=== PATIENT | female | born 1950 | race Caucasian/White ===

== ENCOUNTER → 2016-09-20 | Outpatient (CLI) | payer BC ==
[~2016-09-20] MED LIST: B-COTAB18 PO; CALC600T9 PO; KETO10TA PO; MULT-506 PO; OXYC-57 PO
== END | disposition home or self-care (01) ==
LOC: C.LABSPEC 16:59
PROVIDERS: ATTEND Ophthalmology
DX: H10.11 Acute atopic conjunctivitis, right eye (principal)

== ENCOUNTER → 2016-10-25 | Outpatient (CLI) | payer BC ==
--- NOTE | 2016-10-25 12:50 | MAMMOGRAPHY REPORT ---
BILATERAL DIGITAL SCREENING MAMMOGRAM WITH CAD: 10/25/2016 CLINICAL HISTORY: Routine screening. Patient has no complaints. TECHNIQUE: Bilateral CC and MLO views were obtained. Current study was also evaluated with a Comput er Aided Detection (CAD) system. COMPARISON: Comparison is made to exams dated: 10/21/2015 mammogram, 10/17/2014 mammogram, 06/15/2012 m ammogram, 06/09/2011 mammogram, 02/02/2010 mammogram - [facility], and 02/20/2008. BREAST COMPOSITION: The tissue of both breasts is heterogeneously dense, which may obscure small ma sses. FINDINGS: The parenchymal pattern is similar to prior exams. There is a stable cinda-shaped metallic biopsy marker in the 12:00 left breast. Scattered benign rim calcifications. No developing mass, architectural distortion or cluster of suspicious microcalcifications is seen in either breast. IMPRESSION: ACR BI-RADS CATEGORY 2: BENIGN There is no mammographic evidence of malignancy. A 1 year screening mammogram is recommended. The p atient will receive written notification of the results. Approximately 10% of breast cancers are not detected with mammography. A negative mammographic repor t should not delay biopsy if a clinically suggestive mass is present. Kanchan Rubio M.D. ay/:10/25/2016 12:27:11 Sales Lead: Maria Elena HORN)([place]), [facility] letter sent: Normal 1/2 BI-RADS Code: ACR BI-RADS Category 2: Benign
== END | disposition home or self-care (01) ==
LOC: C.MAMM 09:49
PROVIDERS: ATTEND Internal Medicine
DX: Z12.31 Encounter for screening mammogram for malignant neoplasm of breast (principal)

== ENCOUNTER → 2016-10-25 | Outpatient (CLI) | payer BC ==
[2016-10-25 10:41] LABS: BLOOD UREA NITROGEN 17 mg/dl (7-18); BUN/CREATININE RATIO 15.7 (10-20); CALCIUM 9.2 mg/dl (8.5-10.1); CARBON DIOXIDE 29 mmol/L (21-32); CHLORIDE 107 mmol/L (98-107); GLUCOSE 90 mg/dl (70-99); POTASSIUM 3.9 mmol/L (3.5-5.1); SODIUM 143 mmol/L (136-145)
== END | disposition home or self-care (01) ==
LOC: C.CPL 09:20
PROVIDERS: ATTEND Orthopaedic Surgery
DX: M75.41 Impingement syndrome of right shoulder (principal); Z01.812 Encounter for preprocedural laboratory examination; Z01.810 Encounter for preprocedural cardiovascular examination

== ENCOUNTER → 2016-11-10 | Day surgery (SDC) | payer BC ==
[2016-10-27 08:18] VITALS: Ht 167.6 cm; Wt 84.1 kg
[~2016-11-10] VITALS: Ht 167.6 cm; Wt 84.1 kg
[~2016-11-10] MED LIST changes: +ATROPINE SULFATE 0.1 MG/ML 5ML SYR IV PRN; +BUPIVACAINE/EPINEPHRINE 0.25% 1:200,000 30 ML VIAL ONE; +CEFAZOLIN 2000 MG/60 ML D5W IV SCH; +EpINEphrine INJ 1MG/ML AMP 1 MG/ML AMP ONE; +FENTANYL CITRATE INJ 50 MCG/1 ML 2 ML VIAL IV PRN; +FENTANYL CITRATE INJ 50 MCG/1 ML 2 ML VIAL ONE; +KETOROLAC TROMETHAMINE 30 MG/ML VIAL IV. PRN; +LACTATED RINGER'S 1000ML 1,000 ML IV SCH; +LIDOCAINE HCL 2% 2 ML VIAL (20MG/ML) ONE; +LIDOCAINE HCL 2% LOCAL 20 ML VIAL ONE; +MIDAZOLAM HCL 1 MG/ML 2ML VIAL ONE; +ONDANSETRON INJ 2 MG/ML 2 ML VIAL IV PRN; +OXYCODONE/ACETAMINOPHEN 5-325 TAB PO PRN; +PROPOFOL IV EMULSION 10 MG/ML 20 ML VIAL IV ONE; +ROPIVACAINE 0.5% 5 MG/ML 30 ML VIAL ONE
--- NOTE | 2016-11-10 09:44 | History & Physical Bridge - SC ---
H&P Re-Evaluation Bridge Note: I have examined the patient, reviewed the History & Physical and in the interval since the performance of the History & Physical I have noted the following changes of clinical significance: No changes noted
--- NOTE | 2016-11-10 11:49 | Discharge Instructions-SurgCtr ---
Discharge Instructions Date of Service November 10, 2016. Visit Reason for Visit: Impingement Syndrome Of Shoulder, Dequervain Tenos Discharge Discharge Diagnosis / Problem: SAME ABOVE Discharge Goals Goal(s): Decrease discomfort, Improve function Activity Recommendations Activity Limitations: as noted below Lifting Limitations: gradually increase as tolerated Exercise/Sports Limitations: gradually increase as tolerated Shower/Bathe: tomorrow (BUT YOU NEED TO KEEP DRESSING ON HAND ON AND DRY FOR 5 DAYS ) Anesthesia . Post Anesthesia Instructions: If you have had General Anesthesia or IV Sedation: * Do not drive today. * Resume driving when surgeon permits. * Do not make important decisions or sign legal documents today. * Call surgeon for: 1. Temperature elevations greater than 101 degrees F. 2. Uncontrollable pain. 3. Excessive bleeding. 4. Persistent nausea and vomiting. 5. Medication intolerance (nausea, vomiting or rash). * For nausea and vomiting use only clear liquids such as: tea, soda, bouillon until nausea subsides, then gradually increase diet as tolerated. * If you have any concerns or questions, call your surgeon's office. If physician is unavailable and it is an emergency, call 911 or go to the nearest emergency room. . Instructions / Follow-Up Instructions / Follow-Up MEDICATIONS: * Resume previous medications unless instructed otherwise by your surgeon. * Always take pain medication on a full stomach or with food to avoid upset stomach. * Do not drink alcohol or drive while taking narcotics. * Ibuprofen or Tylenol may be taken if narcotic not needed. SPECIAL CARE INSTRUCTIONS: __ None _X_ Keep extremity elevated and iced x 48 hours; apply ice 20-30 minutes 8-10 times/day. May remove at night. _X_ Sling (FOR COMFORT ONLY) __24 hrs/day __ Remove at night __ Shoulder Immobilizer __ 24 hrs/day __ Remove at night _X_ Dressing __ Maintain until seen in office, may shower with plastic over site _X_ Remove dressings in 24-48 hours and then may shower (FOR THE SHOULDER) _X_ MAY REMOVE THE DRESSING ON THE HAND IN 5 DAYS. MAY SHOWER SOONER IF HAND IS COVERED WITH PLASTIC BAG _X_ Cover incisions with band-aids after showering __ Do not remove steri-strips Call physician if chills or temperature rises above 102 degrees or pain unrelieved by prescribed pain medications at . . Diet Recommendations Home Diet: no limitations Fluid Restriction: None Procedures Procedures Performed: Right Shoulder Arthroscopy, Subacromial Decompression, Debridement, Right Dequervains Release, Right Carpal Tunnel Release Pending Studies Studies pending at discharge: no Work Instructions Return To Work: after follow-up Lifting Limitations: no more than 10 pounds Medical Emergencies . Who to Call and When: Medical Emergencies: If at any time you feel your situation is an emergency, please call 911 immediately. . Non-Emergent Contact Non-Emergency issues call your: Primary Care Provider Call Non-Emergent contact if: you have a fever, temperature is above 101.5 . . "Provider Documentation" section prepared by Manolo Infante. .
[2016-11-10 12:31] VITALS: TEMP 36.7
--- NOTE | 2016-11-10 12:58 | [facility] Post Operative Brief Note ---
Immediate Operative Summary Operative Date November 10, 2016. Pre-Operative Diagnosis Right Shoulder Impingement, Right Dequervains Tenosynovitis, Right Carpal Tunnel Syndrome Post-Operative Diagnosis Same Procedure(s) Performed Right Shoulder Arthroscopy, Subacromial Decompression, Debridement, Right Dequervains Release, Right Carpal Tunnel Release Surgeon Dr. Ellis Terrazzo Worker Surgeon(s) Breanna Infante PA-C Estimated Blood Loss 5 ml Findings as above Specimens None Complication(s) None Disposition Recovery Room / PACU
[2016-11-10 13:00] VITALS: BP 117/61; PULSE 62; O2SAT 98
--- NOTE | 2016-11-10 13:07 | Anesthesia Progress Nt - [facility] ---
Anesthesia Post Op Note Date & Time November 10, 2016 at 13:07 Vital Signs Pain Intensity: 0 Vital Signs Past 12 Hours Date Time Temp Pulse Resp B/P Pulse Ox O2 Delivery O2 Flow Rate FiO2 11/10/16 13:00 62 16 117/61 98 Room Air 11/10/16 12:31 36.7 60 16 136/61 97 Room Air 11/10/16 12:23 36.1 55 20 146/71 99 Room Air 11/10/16 12:22 62 16 11/10/16 12:22 62 16 98 11/10/16 12:21 146/71 11/10/16 12:17 54 17 11/10/16 12:17 55 17 97 11/10/16 12:16 148/70 11/10/16 12:12 55 13 11/10/16 12:12 55 13 98 11/10/16 12:11 136/73 11/10/16 12:07 55 16 100 11/10/16 12:07 55 16 11/10/16 12:06 145/71 11/10/16 12:02 54 17 11/10/16 12:02 54 17 100 11/10/16 12:01 138/68 11/10/16 11:57 56 22 100 11/10/16 11:57 57 22 11/10/16 11:56 133/68 11/10/16 11:52 59 19 11/10/16 11:52 60 19 100 11/10/16 11:51 145/73 11/10/16 11:47 61 10 135/58 11/10/16 11:47 10 11/10/16 11:46 36.2 54 12 135/58 97 Mask 6 11/10/16 10:22 72 11/10/16 10:22 72 12 99 11/10/16 10:21 128/76 11/10/16 10:18 78 13 99 11/10/16 10:18 78 11/10/16 10:16 131/63 11/10/16 10:13 75 11/10/16 10:13 75 13 100 11/10/16 10:11 139/85 11/10/16 10:08 71 12 100 11/10/16 10:08 71 11/10/16 10:06 142/72 11/10/16 10:03 69 11/10/16 10:03 70 0 100 11/10/16 10:02 172/85 11/10/16 09:58 0 11/10/16 09:37 36.6 77 18 161/84 99 Room Air Notes Mental Status: alert / awake / arousable, participated in evaluation Pt Amnestic to Procedure: Yes Nausea / Vomiting: adequately controlled Pain: adequately controlled Airway Patency, RR, SpO2: stable & adequate BP & HR: stable & adequate Hydration State: stable & adequate Anesthetic Complications: no major complications apparent
--- NOTE | 2016-11-10 13:47 | OPERATIVE REPORT ---
DATE OF OPERATION: 11/10/2016 PREOPERATIVE DIAGNOSES: Severe external impingement of the right shoulder with de Quervain's tenosynovitis of the right wrist and right carpal tunnel syndrome. POSTOPERATIVE DIAGNOSES: Same. PROCEDURES: 1. Right shoulder diagnostic arthroscopy with extensive debridement, distal clavicle resection to include coplaning in the undersurface of the clavicle and acromioplasty. 2. Open de Quervain's release of the right wrist. 3. Open right carpal tunnel release. SURGEON: Dr. Erich Ellis. FILLER IN: Iraj Infante PA-C, whose assistance was necessary for positioning of the arm and helping with instrumentation. ANESTHESIA: Sedation with a right interscalene nerve block. COMPLICATIONS: None. CONDITION: Stable to PACU. INDICATIONS: Jackie is a pleasant 66-year-old female who I did a decompression over a year ago. She did very well with her left shoulder. Unfortunately, she was having similar symptoms in her right shoulder. MRI and clinical examination were diagnostic for severe external impingement. She was also complaining of pain in the first dorsal compartment of her right wrist and paresthesias in the median nerve distribution of her right hand. She elected to undergo operative procedure. DESCRIPTION OF PROCEDURE: On 11/10/2016, she arrived at [facility] for the above procedure. She was seen in the preoperative holding area and the operative extremity was identified and signed. She was given a preoperative antibiotic and a right interscalene nerve block. She was taken back to the operating room and given basic sedation. The right wrist and hand was then prepped and draped in sterile fashion. Time-out was done and the patient and operative extremity was properly identified. The de Quervain's release was done first. A longitudinal incision was made directly over the first dorsal compartment. Dissection was taken down with care not to disrupt the superficial radial nerve. The first dorsal compartment was identified and released. Complete resection was checked both proximally and distally. No additional compartments were found deep within the compartment. The wound was then irrigated and closed with 4-0 nylon suture. Attention was then turned to the carpal tunnel. A longitudinal incision was made directly over the transverse carpal ligament. Dissection was taken down through the palmar fascia and ligament was exposed. Sharp knife and tenotomy scissors were used to completely release the transverse carpal ligament. Complete resection was checked both proximally and distally. The wound was then irrigated and closed with 4-0 nylon suture in a mattress fashion. She was then placed in a soft dressing. Attention was then turned to the shoulder. She was then placed in the beach chair position. The right shoulder was prepped and draped in sterile fashion. A scope was introduced in the posterior portal. Diagnostic arthroscopy showed no cartilage damage to the humeral head or the glenoid. There was a little fraying on the undersurface of the rotator cuff, but no evidence of tears. The supraspinatus, infraspinatus, teres minor and subscapularis were intact. The labrum was intact. There was no SLAP lesion. The biceps tendon went through a normal size biceps jorje mechanism. An anterior portal was made. A shaver was used to do a slight debridement of the intraarticular structures. The biceps tendon was pulled into the joint and there was no pathology identified. The scope was then put into the subacromial space. A lateral portal was made. A shaver was used to do a complete subacromial and subdeltoid bursectomy. An ablator was used to tease the coracoacromial ligament off the undersurface of the acromion and a 5-0 dorita was used to complete an acromioplasty of a Bigliani type 3 acromion. A shaver was used to remove any excess debris and the bursal side of the rotator cuff was examined extensively without evidence of tear. There was a large inferior osteophyte hanging off the distal clavicle. A dorita was used to remove this osteophyte and coplaning the undersurface of the clavicle. This completed the distal clavicle resection. I also opened up the supraspinatus outlet. Multiple pictures were taken. Final diagnostic arthroscopy showed no additional pathology. Arthroscopic instruments were removed from the shoulder. Portal sites were closed with 3-0 nylon. She was then placed in a soft dressing and regular arm sling. She was then extubated, transferred to a litter and taken to the postanesthesia care unit in stable condition. She tolerated the procedure well. I attest to the content of the Intraoperative Record and any orders documented therein. Any exceptio ns are noted below.
== END | disposition home or self-care (01) ==
LOC: X.SURG 09:29
PROVIDERS: ATTEND Orthopaedic Surgery
DX: M25.811 Other specified joint disorders, right shoulder (principal); M65.4 Radial styloid tenosynovitis [de Quervain]; G56.01 Carpal tunnel syndrome, right upper limb; J45.909 Unspecified asthma, uncomplicated